=== PATIENT | female | born 1965 | race African-American/Black ===

== ENCOUNTER 2018-05-25 10:28 | Emergency (ER) | payer OTHER ==
[~2018-05-25] VITALS: Ht 149.9 cm; Wt 68.9 kg
[2018-05-25] MEDS ORDERED: PROAIR HFA INH8.5 GM (11:03)
[2018-05-25] MEDS ORDERED: SODIUM CHLORIDE 0.9% 1000ML 1,000 ML IV SCH ×2 (11:15→12:30)
[2018-05-25] MEDS ORDERED: POTASSIUM CHLORIDE 20 MEQ TAB CR PO STA (12:23)
[2018-05-25 13:25] VITALS: BP 132/78
== END 2018-05-25 13:27 | disposition home or self-care (01) ==
LOC: FSED 10:28
DX: E87.6 Hypokalemia (principal); K52.9 Noninfective gastroenteritis and colitis, unspecified; N39.0 Urinary tract infection, site not specified; Z85.71 Personal history of Hodgkin lymphoma
CPT/HCPCS: 80053; 81003; 85025; 99283; J7030

== ENCOUNTER 2018-08-29 17:12 | Emergency (ER) | payer OTHER ==
[~2018-08-29] VITALS: Ht 149.9 cm; Wt 68.9 kg
[~2018-08-29 17:12] MED LIST: PROAIR HFA INH8.5 GM
[2018-08-29] MEDS ORDERED: AZITHROMYCIN 500MG/NS 250 ML 250 ML IV ONE (17:15)
[2018-08-29] MEDS ORDERED: CEFTRIAXONE SOD 1 GM VIAL IM ONE (17:15)
[2018-08-29] MEDS ORDERED: ALBUTEROL/IPRATROPIUM 3 ML NEB NEB ONE (18:00)
--- NOTE | 2018-08-29 18:39 | Diagnostic Imaging Report ---
EXAMINATION: CXR 2 VIEW - HOPD INDICATION: Cough. ^[id number] ^[id number] COMPARISON: None FINDINGS: PA and lateral views TUBES and LINES: None. LUNGS: Lungs are well inflated. Lungs are clear. There is no evidence of pneumonia or pulmonary edema. PLEURA: No pleural effusion or pneumothorax. HEART AND MEDIASTINUM: The cardiomediastinal silhouette is unremarkable. BONES AND SOFT TISSUES: No acute osseous lesion. Soft tissues are unremarkable. UPPER ABDOMEN: No free air under the diaphragm. IMPRESSION: No acute thoracic abnormality. Signed by: Dr. Darren Cedeño MD on 08/29/2018 6:36 PM
== END 2018-08-29 19:04 | disposition home or self-care (01) ==
LOC: FSED 17:12
DX: R05 Cough (principal); J20.8 Acute bronchitis due to other specified organisms
CPT/HCPCS: 71046; 99284; J0456; J0696